=== PATIENT | female | born 1995 | race Asian ===

== ENCOUNTER 2018-10-14 23:07 | Emergency (ER) | payer OTHER ==
[2018-10-14 23:11] VITALS: BP 117/78
--- NOTE | 2018-10-14 23:14 | NUR ---
UNABLE TO OBTAIN MED HX FROM PT.
--- NOTE | 2018-10-14 23:39 | NUR ---
ERP TO BEDSIDE BS [id number]
--- NOTE | 2018-10-15 00:32 | NUR ---
PT ASLEEP FRIEND AT BEDSIDE. PULSE OX IN PLACE AND PT OPENING EYES TO VERBAL STIM.
== END 2018-10-15 03:06 | disposition home or self-care (01) ==
LOC: ED 10-15 01:47
DX: F10.120 Alcohol abuse with intoxication, uncomplicated (principal)
CPT/HCPCS: 36415; 80307; 99283